=== PATIENT | male | born 1945 | race Caucasian/White ===

== ENCOUNTER → 2017-10-21 | Outpatient (CLI) | payer MEDICARE, BC ==
--- NOTE | 2017-10-21 18:09 | XR ---
EXAMINATION TYPE: XR thoracic spine complete DATE OF EXAM: 10/21/2017 COMPARISON: NONE HISTORY: Back pain TECHNIQUE: 3 views FINDINGS: Vertebra have normal alignment. Posterior elements are intact. There is no paraspinal mass. There is some anterior wedging of T5 T4 vertebra. There is also some wedging of T1 and T2. There is up to 25% loss of height. IMPRESSION: Multiple mild thoracic compression fractures. These fractures are new or increased compar ed to the old chest x-ray of 04/01/2016.
== END | disposition home or self-care (01) ==
LOC: RADXRMAIN 17:44
PROVIDERS: ATTEND Chiropractor
DX: S22.009A Unspecified fracture of unspecified thoracic vertebra, initial encounter for closed fracture (principal)
CPT/HCPCS: 72072

== ENCOUNTER → 2018-01-31 | Outpatient (CLI) | payer BC, MEDICARE, OTHER ==
--- NOTE | 2018-01-31 17:04 | MR ---
EXAMINATION TYPE: MR fermin/janie wo con DATE OF EXAM: 01/31/2018 3:40 PM COMPARISON: NONE HISTORY: Neck pain, Low back pain, foot pain, XRAYS on PACS Multiplanar MultiSpin echo imaging of the cervical spine was performed. C2-C3: No evidence for degenerative disc disease. No disc bulge/herniation or protrusion. No Canal stenosis. Foramina are patent bilaterally. C3-C4: There is mild disc desiccation. Mild posterocentral disc bulge. No evidence for herniation or central stenosis. Foramina are patent bilaterally. C4-C5: There is evidence of mild disc desiccation. Posterocentral disc bulge. No herniation or cord c ontact. No central stenosis. Mild left foraminal encroachment secondary to degenerative change of the cervical apophyseal joints. C5-C6: Moderate disc desiccation noted. Circumferential disc bulge greatest posteriorly. Effacement o f the ventral thecal sac. Constriction of the thecal sac with borderline central stenosis. Moderate l eft foraminal encroachment with mild right foraminal encroachment. C6-C7: Moderate disc desiccation noted. Circumferential disc bulge greatest posteriorly. Effacement o f the ventral thecal sac. Constriction of the thecal sac with borderline central stenosis. Moderate l eft foraminal encroachment with mild right foraminal encroachment. C7-T1: No evidence for degenerative disc disease. No disc bulge/herniation or protrusion. No Canal stenosis. Foramina are patent bilaterally. Cervical segments are intact. There is normal alignment. Cervical spinal cord is of normal signal. Craniovertebral junction relationships are within normal limits. IMPRESSION: 1. Multilevel degenerative disc disease with disc bulging. 2. Borderline central stenosis at C5-6 and C6-7. 3. Neural foraminal encroachment as noted. EXAMINATION TYPE: MR shaffer wo con DATE OF EXAM: 01/31/2018 3:40 PM COMPARISON: NONE HISTORY: Neck pain, Low back pain, foot pain, XRAYS on PACS Multiplanar, MultiSpin echo imaging of the lumbar spine was performed. L1-L2: Normal disc appearance without desiccation. No herniation, protrusion or disc bulging. No ca nal stenosis is present. Foramina are patent bilaterally. L2-L3: Normal disc appearance without desiccation. No herniation, protrusion or disc bulging. No ca nal stenosis is present. Foramina are patent bilaterally. L3-L4: Normal disc appearance without desiccation. No herniation, protrusion or disc bulging. No ca nal stenosis is present. Foramina are patent bilaterally. L4-L5: Mild disc desiccation. Mild posterior disc bulge. Mild effacement ventral thecal sac. No evide nce for disc herniation or central stenosis. Mild facet joint arthropathy without neural foraminal en croachment. L5-S1: Severe disc desiccation. Posterior disc bulge with annular tear. Mild effacement ventral theca l sac. No evidence for central stenosis or sylvie herniation. Mild bilateral foraminal encroachment le ft greater than right. Lumbar segments are intact. No paraspinal masses are identified. Conus medullaris has a normal appe arance. L2-3 and rudimentary disc. IMPRESSION: 1. Degenerative disc disease with disc bulging.
== END | disposition home or self-care (01) ==
LOC: RADMRIMAIN 14:40
PROVIDERS: ATTEND Family Medicine
DX: M51.26 Other intervertebral disc displacement, lumbar region (principal); M51.36 Other intervertebral disc degeneration, lumbar region; M48.02 Spinal stenosis, cervical region; M50.21 Other cervical disc displacement, high cervical region; M50.30 Other cervical disc degeneration, unspecified cervical region
CPT/HCPCS: 72141; 72148

== ENCOUNTER 2019-04-17 10:43 | Observation (INO) | payer OTHER, MEDICARE ==
--- NOTE | 2019-04-17 11:17 | ED ---
General Adult HPI - General Chief complaint: Recheck/Abnormal Lab/Rx Stated complaint: High BP Time Seen by Provider: 04/17/19 11:00 Source: patient, RN notes reviewed Mode of arrival: ambulatory Limitations: no limitations - Related Data Home Medications Medication Instructions Recorded Confirmed Aspirin EC [Ecotrin] 81 mg PO DAILY 04/01/16 04/01/16 Lisinopril [Zestril] 20 mg PO BID 04/01/16 04/01/16 Nitroglycerin Sl Tabs [Nitrostat] 0.4 mg SUBLINGUAL Q5M PRN 04/01/16 04/01/16 Pravastatin Sodium [Pravachol] 80 mg PO HS 04/01/16 04/01/16 Triamterene-Hctz 37.5-25Mg 1 cap PO DAILY 04/01/16 04/01/16 [Dyazide 37.5-25 Capsule] amLODIPine [Norvasc] 10 mg PO DAILY 04/01/16 04/01/16 Previous Rx's Medication Instructions Recorded Ibuprofen [Motrin] 800 mg PO Q6HR PRN #20 tab 04/01/16 Allergies Allergy/AdvReac Type Severity Reaction Status Date / Time No Known Allergies Allergy Verified 04/17/19 10:59 Review of Systems ROS Statement: Those systems with pertinent positive or pertinent negative responses have been documented in the HPI. ROS Other: All systems not noted in ROS Statement are negative. Past Medical History Past Medical History: Hypertension Additional Past Medical History / Comment(s): [place] History of Any Multi-Drug Resistant Organisms: None Reported Past Surgical History: No Surgical Hx Reported Past Psychological History: No Psychological Hx Reported Smoking Status: Former smoker Past Alcohol Use History: Heavy Past Drug Use History: None Reported General Exam Limitations: no limitations Course Vital Signs 04/17/19 10:53 Temperature 98.3 F Pulse Rate 68 Respiratory 18 Rate Blood Pressure 165/90 Disposition Referrals: [facility],Clinic [Primary Care Provider] - 1-2 days
[2019-04-17] MEDS ORDERED: NITROGLYCERIN OINT 1 INCH/GM PACKET TOPICAL STA (11:27)
[2019-04-17] MEDS ORDERED: ASPIRIN 81 MG PO STA (11:27)
--- NOTE | 2019-04-17 11:32 | ED ---
General Adult HPI - General Chief complaint: Recheck/Abnormal Lab/Rx Stated complaint: High BP Time Seen by Provider: 04/17/19 11:00 Source: patient, RN notes reviewed Mode of arrival: ambulatory Limitations: no limitations - History of Present Illness Initial comments: This is a 73-year-old male who presents emergency Department stating that he has high blood pressure and high cholesterol. Patient states he woke up in the middle night with left-sided chest pain and it continued until this moment. Patient states she was mildly short of breath with the chest pain. Patient denies any diaphoretic episodes or any nausea. Patient states it's an achy heaviness feeling in the left side of his chest. Patient denies any radiation of the pain. Patient denies any recent fever chills or cough. Patient denies any abdominal pain patient denies nausea vomiting diarrhea. Patient denies any lightheadedness dizziness or near syncopal episode. Patient denies any recent injury or trauma. Patient denies any leg swelling or calf tenderness. - Related Data Home Medications Medication Instructions Recorded Confirmed Lisinopril [Zestril] 20 mg PO BID 04/01/16 04/17/19 amLODIPine [Norvasc] 10 mg PO DAILY 04/01/16 04/17/19 Allergies Allergy/AdvReac Type Severity Reaction Status Date / Time No Known Allergies Allergy Verified 04/17/19 11:37 Review of Systems ROS Statement: Those systems with pertinent positive or pertinent negative responses have been documented in the HPI. ROS Other: All systems not noted in ROS Statement are negative. Past Medical History Past Medical History: Hypertension Additional Past Medical History / Comment(s): [facility] History of Any Multi-Drug Resistant Organisms: None Reported Past Surgical History: No Surgical Hx Reported Past Psychological History: No Psychological Hx Reported Smoking Status: Former smoker Past Alcohol Use History: Heavy Past Drug Use History: None Reported General Exam - General Exam Comments Initial Comments: GENERAL: Patient is well-developed and well-nourished. Patient is nontoxic and well- hydrated and is in mild distress. ENT: Neck is soft and supple. No significant lymphadenopathy is noted. Oropharynx is clear. Moist mucous membranes. Neck has full range of motion without eliciting any pain. EYES: The sclera were anicteric and conjunctiva were pink and moist. Extraocular movements were intact and pupils were equal round and reactive to light. Eye lids were unremarkable. PULMONARY: Unlabored respirations. Good breath sounds bilaterally. No audible rales rhonchi or wheezing was noted. CARDIOVASCULAR: There is a regular rate and rhythm without any murmurs gallops or rubs. ABDOMEN: Soft and nontender with normal bowel sounds. No palpable organomegaly was noted. There is no palpable pulsatile mass. SKIN: Skin is clear with no lesions or rashes and otherwise unremarkable. NEUROLOGIC: Patient is alert and oriented x3. Cranial nerves II through XII are grossly intact. Motor and sensory are also intact. Normal speech, volume and content. Symmetrical smile. MUSCULOSKELETAL: Normal extremities with adequate strength and full range of motion. No lower extremity swelling or edema. No calf tenderness. LYMPHATICS: No significant lymphadenopathy is noted PSYCHIATRIC: Normal psychiatric evaluation. Limitations: no limitations Course Vital Signs 04/17/19 04/17/19 04/17/19 10:53 11:20 11:30 Temperature 98.3 F Pulse Rate 68 60 Respiratory 18 14 Rate Blood Pressure 165/90 175/89 O2 Sat by Pulse 93 L 95 Oximetry 04/17/19 04/17/19 04/17/19 12:00 12:30 13:00 Temperature Pulse Rate 61 58 L Respiratory 17 12 Rate Blood Pressure 155/84 133/73 127/75 O2 Sat by Pulse 97 96 Oximetry Medical Decision Making - Medical Decision Making EKG shows normal sinus rhythm at 61 bpm ND interval is 162 QRS 144 Q-T intervals 452 QTC is 455. Patient's EKG shows no ST segment elevation or depression or T wave abnormalities are noted. Patient had received aspirin and Nitropaste in the emergency department and that seemed to take the chest pain away completely. Patient's chest x-ray showed no acute abnormality. I spoke with Dr. fofana he agreed to admit the patient admitted the patient wrote admitting orders. I started heparin in the emergency department and continue the heparin Nitropaste and aspirin on the floor. - Lab Data Result diagrams: 04/17/19 11:55 04/17/19 11:55 Lab Results 04/17/19 04/17/19 04/17/19 Range/Units 11:55 11:55 11:55 WBC 4.8 (3.8-10.6) k/uL RBC 5.43 (4.30-5.90) m/uL Hgb 16.9 (13.0-17.5) gm/dL Hct 49.7 (39.0-53.0) % MCV 91.6 (80.0-100.0) fL MCH 31.2 (25.0-35.0) pg MCHC 34.1 (31.0-37.0) g/dL RDW 13.0 (11.5-15.5) % Plt Count 172 (150-450) k/uL Neutrophils % 68 % Lymphocytes % 18 % Monocytes % 9 % Eosinophils % 1 % Basophils % 0 % Neutrophils # 3.3 (1.3-7.7) k/uL Lymphocytes # 0.9 L (1.0-4.8) k/uL Monocytes # 0.4 (0-1.0) k/uL Eosinophils # 0.1 (0-0.7) k/uL Basophils # 0.0 (0-0.2) k/uL PT 10.1 (9.0-12.0) sec INR 0.9 (<1.2) APTT 26.9 (22.0-30.0) sec Sodium 140 (137-145) mmol/L Potassium 4.2 (3.5-5.1) mmol/L Chloride 106 (98-107) mmol/L Carbon Dioxide 23 (22-30) mmol/L Anion Gap 11 mmol/L BUN 17 (9-20) mg/dL Creatinine 1.01 (0.66-1.25) mg/dL Est GFR (CKD-EPI)AfAm 86 (>60 ml/min/1.73 sqM) Est GFR (CKD-EPI)NonAf 74 (>60 ml/min/1.73 sqM) Glucose 107 H (74-99) mg/dL Calcium 10.0 (8.4-10.2) mg/dL Magnesium 2.1 (1.6-2.3) mg/dL Total Bilirubin 1.0 (0.2-1.3) mg/dL AST 34 (17-59) U/L ALT 39 (21-72) U/L Alkaline Phosphatase 81 (38-126) U/L Troponin I (0.000-0.034) ng/mL Total Protein 7.9 (6.3-8.2) g/dL Albumin 4.9 (3.5-5.0) g/dL 04/17/19 Range/Units 11:55 WBC (3.8-10.6) k/uL RBC (4.30-5.90) m/uL Hgb (13.0-17.5) gm/dL Hct (39.0-53.0) % MCV (80.0-100.0) fL MCH (25.0-35.0) pg MCHC (31.0-37.0) g/dL RDW (11.5-15.5) % Plt Count (150-450) k/uL Neutrophils % % Lymphocytes % % Monocytes % % Eosinophils % % Basophils % % Neutrophils # (1.3-7.7) k/uL Lymphocytes # (1.0-4.8) k/uL Monocytes # (0-1.0) k/uL Eosinophils # (0-0.7) k/uL Basophils # (0-0.2) k/uL PT (9.0-12.0) sec INR (<1.2) APTT (22.0-30.0) sec Sodium (137-145) mmol/L Potassium (3.5-5.1) mmol/L Chloride (98-107) mmol/L Carbon Dioxide (22-30) mmol/L Anion Gap mmol/L BUN (9-20) mg/dL Creatinine (0.66-1.25) mg/dL Est GFR (CKD-EPI)AfAm (>60 ml/min/1.73 sqM) Est GFR (CKD-EPI)NonAf (>60 ml/min/1.73 sqM) Glucose (74-99) mg/dL Calcium (8.4-10.2) mg/dL Magnesium (1.6-2.3) mg/dL Total Bilirubin (0.2-1.3) mg/dL AST (17-59) U/L ALT (21-72) U/L Alkaline Phosphatase (38-126) U/L Troponin I <0.012 (0.000-0.034) ng/mL Total Protein (6.3-8.2) g/dL Albumin (3.5-5.0) g/dL Critical Care Time Critical Care Time: Yes Total Critical Care Time: 35 Disposition Clinical Impression: Unstable angina Disposition: ADMITTED IP TO THIS [facility] Condition: Good Referrals: [facility],Clinic [Primary Care Provider] - 1-2 days Time of Disposition: 13:53
--- NOTE | 2019-04-17 12:23 | XR ---
EXAMINATION TYPE: XR chest 2V DATE OF EXAM: 04/17/2019 COMPARISON: Prior chest x-ray 04/01/2016 HISTORY: Chest pain and hypertension TECHNIQUE: Frontal and lateral views of the chest are obtained. FINDINGS: There is no focal air space opacity, pleural effusion, or pneumothorax seen. The cardiac silhouette size is within normal limits. There are overlying cardiac leads. There is likely a spinal curvature present. The aorta is dense. The osseous structures are intact. IMPRESSION: No acute cardiopulmonary process.
[2019-04-17 12:44] LABS: Basophils % (A) 0 %; Eosinophils # (A) 0.1 k/uL (0-0.7); Eosinophils % (A) 1 %; HCT 49.7 % (39.0-53.0); HGB 16.9 gm/dL (13.0-17.5); Lymphocytes # (A) 0.9 k/uL (1.0-4.8); Lymphocytes % (A) 18 %; MCH 31.2 pg (25.0-35.0); MCHC 34.1 g/dL (31.0-37.0); MCV 91.6 fL (80.0-100.0); Monocytes # (A) 0.4 k/uL (0-1.0); Monocytes % (A) 9 %; Neutrophils # (A) 3.3 k/uL (1.3-7.7); Neutrophils % (A) 68 %; Platelet Count 172 k/uL (150-450); RBC 5.43 m/uL (4.30-5.90); WBC 4.8 k/uL (3.8-10.6)
[2019-04-17 12:55] LABS: Albumin 4.9 g/dL (3.5-5.0); Magnesium 2.1 mg/dL (1.6-2.3); Potassium 4.2 mmol/L (3.5-5.1); Total Protein 7.9 g/dL (6.3-8.2)
[2019-04-17 13:09] LABS: INR 0.9 (<1.2); Partial Thromboplastin Time 26.9 sec (22.0-30.0); Prothrombin Time 10.1 sec (9.0-12.0)
[2019-04-17] MEDS ORDERED: HEPARIN SODIUM,PORCINE 5,000 UNIT/ML 1 ML VIAL IV ONE (13:49)
[2019-04-17] MEDS ORDERED: HEPARIN SOD,PORK IN 0.45% NACL 25,000 UNIT in 0.45% NACL 1 250ML.BAG IV SCH (14:00)
[2019-04-17] MEDS ORDERED: PANTOPRAZOLE 40 MG TABLET PO SCH (14:30)
[2019-04-17] MEDS ORDERED: NITROGLYCERIN SL TABS 0.4 MG TAB SUBLINGUAL PRN (15:06)
[2019-04-17 16:01] VITALS: RESP 18
[2019-04-17 16:18] VITALS: BMI 30.7
[2019-04-17] MEDS: ACETAMINOPHEN TAB 325 MG TAB PO PRN ×2 (16:37→19:44)
--- NOTE | 2019-04-17 18:58 | P.HPIM ---
History of Present Illness This is a pleasant 73 years old male with past medical history of Hypertension, who presents because of chest pain which was started yesterday , on the left upper chest , non radiating , about 10/10 when he came in to the hospital , now it is down to 4/10, pt feels it like burning, associated with nausea but no vomiting , he denies abdominal pain , no change in urine or bowel habits, no fever , no coughing he denies smoking , no illicit drugs but he drinks nina about 3-4 times per week On admission Vitas looks stable, guarded blood pressure 133/73. Labs reviewed showing unremarkable CBC, BMP and liver enzymes. First troponin is less than 0.012. No acute Pulmonary process as per Radiologist. EKG: Showing normal sinu s rhythm at [address]-T wave, right mental branch block in the emergency room pt was started on heparin drip and aspirin, however later on the iv line went bad and needed to be replaced but pt refused as per staff, risks including but not limited to risk of , heart failure or loss of function are explained for him but he refused , cardiology team was paged and as alternative pt was started on heparin 5000 U sc q 8 hours. discussed with pharmacy discussed with staff to place mid-line Review of Systems CONSTITUTIONAL: No fever, no malaise, no fatigue. HEENT: No recent visual problems or hearing problems. Denied any sore throat. CARDIOVASCULAR: No orthopnea, PND, no palpitations, no syncope. PULMONARY: No shortness of breath, no cough, no hemoptysis. GASTROINTESTINAL: No diarrhea, no nausea, no vomiting, no abdominal pain. Normoactive bowel sounds. NEUROLOGICAL: No headaches, no weakness, no numbness. HEMATOLOGICAL: Denies any bleeding or petechiae. GENITOURINARY: Denies any burning micturition, frequency, or urgency. MUSCULOSKELETAL/RHEUMATOLOGICAL: Denies any joint pain, swelling, or any muscle pain. ENDOCRINE: Denies any polyuria or polydipsia. Past Medical History Past Medical History: Hypertension Additional Past Medical History / Comment(s): [place] History of Any Multi-Drug Resistant Organisms: None Reported Past Surgical History: No Surgical Hx Reported Past Psychological History: No Psychological Hx Reported Smoking Status: Former smoker Past Alcohol Use History: Heavy Past Drug Use History: None Reported Medications and Allergies Home Medications Medication Instructions Recorded Confirmed Type Lisinopril [Zestril] 20 mg PO BID 04/01/16 04/17/19 History amLODIPine [Norvasc] 10 mg PO DAILY 04/01/16 04/17/19 History Allergies Allergy/AdvReac Type Severity Reaction Status Date / Time No Known Allergies Allergy Verified 04/17/19 11:37 Physical Exam Vitals: Vital Signs Temp Pulse Resp BP Pulse Ox 04/17/19 13:00 58 L 12 127/75 96 04/17/19 12:30 61 17 133/73 97 04/17/19 12:00 155/84 04/17/19 11:30 60 14 175/89 95 04/17/19 11:20 93 L 04/17/19 10:53 98.3 F 68 18 165/90 Intake and Output 04/16/19 04/17/19 04/17/19 22:59 06:59 14:59 Other: Weight 88.995 kg GENERAL: The patient is alert and oriented x3, not in any acute distress. Well developed, well nourished. HEENT: Pupils are round and equally reacting to light. EOMI. No scleral icterus. No conjunctival pallor. Normocephalic, atraumatic. No pharyngeal erythema. No thyromegaly. CARDIOVASCULAR: S1 and S2 present. No murmurs, rubs, or gallops. PULMONARY: Chest is clear to auscultation, no wheezing or crackles. ABDOMEN: Soft, nontender, nondistended, normoactive bowel sounds. No palpable organomegaly. MUSCULOSKELETAL: No joint swelling or deformity. EXTREMITIES: No cyanosis, clubbing, or pedal edema. NEUROLOGICAL: Gross neurological examination did not reveal any focal deficits. SKIN: No rashes. Results CBC & Chem 7: 04/17/19 11:55 04/17/19 11:55 Labs: Abnormal Lab Results - Last 24 Hours (Table) 04/17/19 04/17/19 Range/Units 11:55 11:55 Lymphocytes # 0.9 L (1.0-4.8) k/uL Glucose 107 H (74-99) mg/dL Assessment and Plan Assessment: chest pain , rule out unstable angina hypertension alcohol abuse Plan: this is a pleasant 73 yo M who presents with unstable angina, pt refusing iv line , start sc heparin , other anticoagulants are longer acting and might interfere if he will need procedure , cardiology consult is placed, continue with aspirin. Labs and medication were reviewed.. Continue same treatment. Continue with symptomatic treatment. Resume home medication. Monitor lytes and vitals. DVT and GI prophylaxis. Further recommendations of the clinical course of the patient DVT prophylaxis: Subcutaneous heparin, pt refusing placing iv line GI Prophylaxis: Protonix Prognosis is guarded
[2019-04-17] MEDS: NITROGLYCERIN OINT 1 INCH/GM PACKET TOPICAL SCH ×2 (18:59→19:46)
[2019-04-17] MEDS: HEPARIN SODIUM,PORCINE 5,000 UNIT/ML 1 ML VIAL SQ SCH ×2 (19:32→19:46)
[2019-04-17] MEDS ORDERED: LISINOPRIL 20 MG TAB PO SCH (21:00)
[2019-04-18] MEDS ORDERED: IBUPROFEN 600 MG TAB PO STA (00:21)
[2019-04-18 00:22] LABS: Cholesterol 254 mg/dL (<200); HDL Cholesterol 69 mg/dL (40-60); LDL Cholesterol,Calculated 166 mg/dL (0-99); Triglycerides 95 mg/dL (<150)
[2019-04-18] MEDS ORDERED: ASPIRIN 325 MG TAB PO SCH (09:00)
[2019-04-18] MEDS ORDERED: ATORVASTATIN 40 MG TAB PO SCH (09:00)
[2019-04-18] MEDS ORDERED: amLODIPine 10 MG TAB PO SCH (09:00)
--- NOTE | 2019-04-18 09:55 | P.CRDCN ---
History of Present Illness History of present illness: This is a pleasant 73-year-old male past medical history significant for hypertension and former nicotine dependence. 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 We've been asked to see him in consultation secondary to chest discomfort. He states he has been back and forth to the [facility] over the previous couple weeks secondary to elevated blood pressures. Has been checking his blood pressures at home and his blood pressure yesterday morning when he woke up was over 200 systolic. He states he has been out of his prescribed medications for reasons out of his control for the previous week. He also noticed a tight sensation in the left precordial region he describes as achy. There is no radiation to the a rm, back, neck or jaw. He denies any associated shortness of breath, dizziness, nausea, vomiting, palpitations or diaphoresis. There is no specific aggravating or alleviating factors. Blood pressure on arrival to the emergency department was 165/90 175/89. Upon arrival to the emergency department he was given nitroglycerin and prescribed lisinopril which brought his blood pressure down and subsided his chest discomfort. Blood pressure this morning 132/81 with a heart rate of 50. EKG reveals sinus mechanism, right bundle branch block and left axis deviation. No acute ST or T wave abnormalities noted. Chest x-ray is negative for an acute cardiopulmonary process. Laboratory data reviewed, cardiac enzymes negative 3, LDL 166 and HDL 69. Current cardiac medications include amlodipine 10 mg daily and lisinopril 20 mg twice a day. At the time of my exam: CONSTITUTIONAL: Denies fever. Denies chills. EYES: Denies blurred vision. Denies vision changes. Denies eye pain. EARS, NOSE, MOUTH & THROAT: Denies headache. Denies sore throat. Denies ear pain. CARDIOVASCULAR: Denies chest pain. Denies shortness of breath. Denies orthopnea. Denies PND. Denies palpitations. RESPIRATORY: Denies cough. GASTROINTESTINAL: Denies abdominal pain. Denies diarrhea. Denies constipation. Denies nausea. Denies vomiting. MUSCULOSKELETAL: Denies myalgias. INTEGUMENTARY: Denies pruitis. Denies rash. NEUROLOGIC: Denies numbness. Denies tingling. Denies weakness. PSYCHIATRIC: Denies anxiety. Denies depression. ENDOCRINE: Denies fatigue. Denies weight change. Denies polydipsia. Denies polyurina. GENITOURINARY: Denies burning, hematuria or urgency with micturation. HEMATOLOGIC: Denies history of anemia. Denies bleeding. GENERAL: This is a 73-year-old male in no apparent distress at the ti me of my examination. HEENT: Head is atraumatic, normocephalic. Pupils are equal, round. Sclerae ani cteric. Conjunctivae are clear. Mucous membranes of the mouth are moist. Neck is supple. There is no jugular venous distention. No carotid bruit is heard. LUNGS: Faint expiratory wheeze noted, no rhonchi or rales. No chest wall tenderness is noted on palpation or with deep breathing. HEART: Regular rate and rhythm without murmurs, rubs or gallops. S1 and S2 heard. ABDOMEN: Soft, nontender. Bowel sounds are heard. No organomegaly noted. EXTREMITIES: No evidence of peripheral edema and no calf tenderness noted. VASCULAR: Radial and dorsalis pedis pulses palpated, no evidence of clubbing. NEUROLOGIC: Patient is awake, alert and oriented x3. ASSESSMENT Chest pain, atypical for angina. An acute coronary event has been ruled out. Hypertension, uncontrolled Dyslipidemia PLAN Resume amlodipine and lisinopril as previously ordered. Initiate on moderate dose statin, atorvastatin 40 mg daily. Obtain 2-D echocardiogram and Doppler study to assess cardiac structure and function. Perform cardiolyte stress test to assess for reversible cardiac ischemia. Stress test is normal he is stable from a cardiac perspective. Thank you kindly for this consultation. Nurse Practitioner note has been reviewed, I agree with a documented findings and plan of care. Patient was seen and examined. Past Medical History Past Medical History: Hypertension Additional Past Medical History / Comment(s): [place] History of Any Multi-Drug Resistant Organisms: None Reported Past Surgical History: No Surgical Hx Reported Past Psychological History: No Psychological Hx Reported Smoking Status: Former smoker Past Alcohol Use History: Heavy Past Drug Use History: None Reported Medications and Allergies Home Medications Medication Instructions Recorded Confirmed Type Lisinopril [Zestril] 20 mg PO BID 04/01/16 04/17/19 History amLODIPine [Norvasc] 10 mg PO DAILY 04/01/16 04/17/19 History Allergies Allergy/AdvReac Type Severity Reaction Status Date / Time No Known Allergies Allergy Verified 04/17/19 11:37 Physical Exam Vitals: Vital Signs Temp Pulse Pulse Resp BP BP Pulse Ox 04/18/19 07:00 97.6 F 50 L 18 132/81 98 04/18/19 04:00 97.9 F 49 L 18 119/74 97 04/18/19 00:00 97.8 F 51 L 18 119/69 97 04/17/19 20:00 98.2 F 53 L 18 122/68 96 04/17/19 16:00 59 L 18 04/17/19 15:58 97.6 F 59 L 18 162/77 97 04/17/19 15:00 62 16 127/81 97 04/17/19 14:30 59 L 13 128/87 96 04/17/19 14:00 60 12 115/75 96 04/17/19 13:30 60 11 L 148/87 97 04/17/19 13:00 58 L 12 127/75 96 04/17/19 12:30 61 17 133/73 97 04/17/19 12:00 155/84 04/17/19 11:30 60 14 175/89 95 04/17/19 11:20 93 L 04/17/19 10:53 98.3 F 68 18 165/90 Intake and Output 04/17/19 04/18/19 04/18/19 22:59 06:59 14:59 Intake Total 240 Balance 240 Intake: Oral 240 Other: Voiding Method Toilet Toilet # Voids 1 Results 04/17/19 11:55 04/17/19 11:55 Cardiac Enzymes 04/17/19 04/17/19 04/17/19 Range/Units 11:55 11:55 18:10 AST 34 (17-59) U/L Troponin I <0.012 <0.012 (0.000-0.034) ng/mL 04/18/19 Range/Units 00:35 AST (17-59) U/L Troponin I <0.012 (0.000-0.034) ng/mL Coagulation 04/17/19 Range/Units 11:55 PT 10.1 (9.0-12.0) sec APTT 26.9 (22.0-30.0) sec Lipids 04/17/19 Range/Units 11:55 Triglycerides 95 (<150) mg/dL Cholesterol 254 H (<200) mg/dL HDL Cholesterol 69 H (40-60) mg/dL CBC 04/17/19 Range/Units 11:55 WBC 4.8 (3.8-10.6) k/uL RBC 5.43 (4.30-5.90) m/uL Hgb 16.9 (13.0-17.5) gm/dL Hct 49.7 (39.0-53.0) % Plt Count 172 (150-450) k/uL Comprehensive Metabolic Panel 04/17/19 Range/Units 11:55 Sodium 140 (137-145) mmol/L Potassium 4.2 (3.5-5.1) mmol/L Chloride 106 (98-107) mmol/L Carbon Dioxide 23 (22-30) mmol/L BUN 17 (9-20) mg/dL Creatinine 1.01 (0.66-1.25) mg/dL Glucose 107 H (74-99) mg/dL Calcium 10.0 (8.4-10.2) mg/dL AST 34 (17-59) U/L ALT 39 (21-72) U/L Alkaline Phosphatase 81 (38-126) U/L Total Protein 7.9 (6.3-8.2) g/dL Albumin 4.9 (3.5-5.0) g/dL Current Medications Generic Name Dose Route Start Last Admin Trade Name Freq PRN Reason Stop Dose Admin Acetaminophen 650 mg 04/17/19 16:21 04/17/19 19:44 Tylenol Tab PO 650 mg Q6HR PRN Administration Fever and/ or Mild Pain Amlodipine Besylate 10 mg 04/18/19 09:00 Norvasc PO DAILY [facility] Aspirin 325 mg 04/18/19 09:00 Aspirin PO DAILY [facility] Heparin Sodium (Porcine) 5,000 unit 04/17/19 20:00 04/17/19 19:46 Heparin SQ Not Given Q8H [facility] Lisinopril 20 mg 04/17/19 21:00 04/17/19 19:44 Zestril PO 20 mg BID MONICA Administration Nitroglycerin 1 inch 04/17/19 18:00 04/17/19 19:46 Nitro-Bid Oint TOPICAL Not Given Q6HR [facility] Nitroglycerin 0.4 mg 04/17/19 15:06 Nitrostat SUBLINGUAL Q5M PRN Chest Pain Pantoprazole Sodium 40 mg 04/17/19 14:30 04/17/19 16:38 Protonix PO 40 mg [id number]-[id number] MONICA Administration Intake and Output 04/17/19 04/18/19 04/18/19 22:59 06:59 14:59 Intake Total 240 Balance 240 Intake: Oral 240 Other: Voiding Method Toilet Toilet # Voids 1 04/17/19 11:55 04/17/19 11:55
[2019-04-18 11:20] VITALS: BP 127/80; PULSE 55; TEMP 98.1
--- NOTE | 2019-04-18 11:20 | ECHOF ---
Referral Reason:cp MEASUREMENTS -------- HEIGHT: 170.2 cm WEIGHT: 88.0 kg BP: RVIDd: 2.5 cm (< 3.3) IVSd: 1.4 cm (0.6 - 1.1) LVIDd: 3.6 cm (3.9 - 5.3) LVPWd: 1.4 cm (0.6 - 1.1) IVSs: 2.0 cm LVIDs: 2.1 cm LVPWs: 2.1 cm LAESV Index (A-L): 13.96 ml/m Ao Diam: 2.3 cm (2.0 - 3.7) AV Cusp: 1.8 cm (1.5 - 2.6) LA Diam: 3.4 cm (2.7 - 3.8) MV EXCURSION: 15.965 mm (> 18.000) MV EF SLOPE: 77 mm/s (70 - 150) EPSS: 0.5 cm MV E Jose: 0.89 m/s MV DecT: 261 ms MV A Jose: 0.86 m/s MV E/A Ratio: 1.04 RAP: 5.00 mmHg RVSP: 10.99 mmHg FINDINGS -------- Sinus rhythm. This was a technically good study. The left ventricular size is normal. There is moderate concentric left ventricular hypertrophy. O verall left ventricular systolic function is normal with, an EF between 55 - 60 %. The diastolic fi lling pattern is normal for the age of the patient 10.03. The right ventricle is normal in size. The left atrial size is normal. Normal LA size by volume 22+/-6 ml/m2. The right atrial size is normal. Interatrial and interventricular septum intact. The aortic valve is trileaflet and appears structurally normal. There is trace mitral regurgitation. Trace tricuspid regurgitation present. The right ventricular systolic pressure, as measured by Dopp ler, is 10.99mmHg. There is no pulmonic regurgitation present. The aortic root size is normal. Normal inferior vena cava with normal inspiratory collapse consistent with estimated right atrial pre ssure of 5 mmHg. There is no pericardial effusion. CONCLUSIONS -------- 1. Sinus rhythm. 2. This was a technically good study. 3. The left ventricular size is normal. 4. There is moderate concentric left ventricular hypertrophy. 5. Overall left ventricular systolic function is normal with, an EF between 55 - 60 %. 6. The diastolic filling pattern is normal for the age of the patient 10.03 7. The right ventricle is normal in size. 8. The left atrial size is normal. 9. Normal LA size by volume 22+/-6 ml/m2. 10. The right atrial size is normal. 11. Interatrial and interventricular septum intact. 12. The aortic valve is trileaflet and appears structurally normal. 13. There is trace mitral regurgitation. 14. Trace tricuspid regurgitation present. 15. The right ventricular systolic pressure, as measured by Doppler, is 10.99mmHg. 16. There is no pulmonic regurgitation present. 17. The aortic root size is normal. 18. Normal inferior vena cava with normal inspiratory collapse consistent with estimated right atrial pressure of 5 mmHg. 19. There is no pericardial effusion. SECONDS GRADER: Adelaida Blevins RDCS
--- NOTE | 2019-04-18 13:20 | ECHOS ---
STRESS ECHOCARDIOGRAM INDICATIONS: Chest pain. MEDICATIONS: BASELINE HEART RATE: 58 BASELINE BLOOD PRESSURE: 132/65 MAXIMUM HEART RATE: 140 MAXIMUM BLOOD PRESSURE: 196/69 85% MPHR: 126 100% MPHR: 148 METS: 8.4 MAXIMUM STAGE REACHED: III TOTAL EXERCISE TIME: 7 minutes CLINICAL INFORMATION: Patient was exercised for a total period of 7 minute. The peak heart rate of 140 was achieved. Maximum blood pressure of 196/69 mmHg was noted. Resting EKG shows normal sinus rhythm with QRS morphology suggestive of right bundle branch block pattern was noted. No ST-segment depression suggestive of ischemia was noted. The baseline echocardiographic images reveal normal left ventricular chamber size with normal left ventricular systolic function. In the immediate postexercise period, normal increase in the wall thickness and contractility is noted. FINAL IMPRESSION: This stress echocardiographic study is negative for stress-induced ischemia. EKG portion of the stress test is not suggestive of ischemia. Patient's exercise tolerance is average. MMODL / IJN: [id number] /
--- NOTE | 2019-04-18 22:16 | P.DS ---
Providers Date of admission: 04/17/19 15:06 Attending physician: Fredrick Lemus MD Consults: 04/17/19 15:06 Consult Physician Urgent Consulting Provider: [facility] Consult Reason/Comments: Unstable angina Do you want consulting provider notified?: Yes Primary care physician: [facility] Course: This is a pleasant 73 years old male with past medical history of Hypertension, who presents because of severe chest pain of 1-2 days of duration. Patient has been evaluated by coater operator. Serial troponins were unremarkable as. EKG no significant ST-T changes. Glass Cleaning Machine Tender recommended a stress test which shows: Patient's symptoms completely resolved and his currently chest pain-free. He denies any other symptoms. No dyspnea. No abdominal pain. No nausea vomiting. No change in urine or bowel habits. He tolerated diet well. Mobility with no difficulty. Patient was cleared by cardiology team for discharge. Problems and management plan were discussed with the patient and he verbalized understanding and acceptance Patient was found stable and can be discharged home however he needs follow-up as an outpatient. pt was instructed to f/u with his pcp in one week , and his coater operator in 2 wks and he agrees. pt wants scripts for lipitor and he wants to try it , although he could not tolerated pravastatin before . Gen: patient is a AAOx3, no distress CVS: S1-S2, RRR, no murmur Lungs: B/L CTA, no wheezing Abdomen: soft, no distention, no tenderness, positive bowel sounds Extremity: no leg edema or induration Time spent more than 35 minutes Patient Condition at Discharge: Good Plan - Discharge Summary Discharge Rx Participant: No New Discharge Prescriptions: New Nitroglycerin Sl Tabs [Nitrostat] 0.4 mg SUBLINGUAL Q5M PRN #20 tab PRN Reason: Chest Pain Atorvastatin [Lipitor] 40 mg PO DAILY #30 tablet Continue amLODIPine [Norvasc] 10 mg PO DAILY Lisinopril [Zestril] 20 mg PO BID Discharge Medication List Lisinopril [Zestril] 20 mg PO BID 04/01/16 [History] amLODIPine [Norvasc] 10 mg PO DAILY 04/01/16 [History] Atorvastatin [Lipitor] 40 mg PO DAILY #30 tablet 04/18/19 [Rx] Nitroglycerin Sl Tabs [Nitrostat] 0.4 mg SUBLINGUAL Q5M PRN #20 tab 04/18/19 [Rx] Follow up Appointment(s)/Referral(s): Jeanette August MD [STAFF PHYSICIAN] - 2 Weeks (coater operator ) [facility] [Primary Care Provider] - 1-2 days Activity/Diet/Wound Care/Special Instructions: cardiac diet activity is limited till you see your doctor Discharge Disposition: HOME SELF-CARE
== END 2019-04-18 13:55 | disposition home or self-care (01) ==
LOC: EC 10:43 → 1SOBS 15:06
PROVIDERS: ADMIT Internal Medicine; ATTEND Internal Medicine
DX: R07.89 Other chest pain (principal); E78.00 Pure hypercholesterolemia, unspecified; E78.5 Hyperlipidemia, unspecified; I10 Essential (primary) hypertension; F10.10 Alcohol abuse, uncomplicated; I45.10 Unspecified right bundle-branch block; Z79.899 Other long term (current) drug therapy; Z87.891 Personal history of nicotine dependence; Z53.20 Procedure and treatment not carried out because of patient's decision for unspecified reasons
CPT/HCPCS: 96374; 99291; 36415; 93005; 93306; 93351; 80061; 80053; 83735; 84484 ×2; 85025; 85610; 85730; 71046; G0378 ×2; J1644 ×2

== ENCOUNTER 2021-01-06 12:14 | Observation (INO) | payer OTHER, MEDICARE ==
[2021-01-06 13:21] LABS: Basophils % (A) 1 %; Eosinophils # (A) 0.1 k/uL (0-0.7); Eosinophils % (A) 3 %; HCT 46.7 % (39.0-53.0); Lymphocytes % (A) 21 %; MCHC 34.4 g/dL (31.0-37.0); MCV 90.2 fL (80.0-100.0); Mean Platelet Volume 7.1; Monocytes # (A) 0.3 k/uL (0-1.0); Monocytes % (A) 7 %; Neutrophils % (A) 66 %; Platelet Count 175 k/uL (150-450); RBC 5.17 m/uL (4.30-5.90); RDW 13.1 % (11.5-15.5); WBC 4.5 k/uL (3.8-10.6)
[2021-01-06 13:34] LABS: ALT 28 U/L (4-49); AST 34 U/L (17-59); African American GFR (CKD) >90 (>60 ml/min/1.73 sqM); Albumin 4.3 g/dL (3.5-5.0); Alkaline Phosphatase 68 U/L (38-126); Anion Gap 7 mmol/L; Blood Urea Nitrogen 24 mg/dL (9-20); Calcium 9.2 mg/dL (8.4-10.2); Carbon Dioxide 21 mmol/L (22-30); Chloride 109 mmol/L (98-107); Glucose 105 mg/dL (74-99); INR 0.9 (<1.2); Non-African American GFR(CKD) 85 (>60 ml/min/1.73 sqM); Partial Thromboplastin Time 25.4 sec (22.0-30.0); Potassium 4.3 mmol/L (3.5-5.1); Sodium 137 mmol/L (137-145); Total Bilirubin 0.6 mg/dL (0.2-1.3); Total Protein 7.3 g/dL (6.3-8.2)
--- NOTE | 2021-01-06 15:48 | ED ---
Chest Pain HPI - General Chief Complaint: Chest Pain Stated Complaint: Chest pain Time Seen by Provider: 01/06/21 15:20 Source: patient Mode of arrival: ambulatory Limitations: no limitations - History of Present Illness Initial Comments: 75-year-old male with history of hypertension presents to the emergency department with a chief complaint of chest pain. States the chest pain has been well for approximately 6 weeks and is located on the left side of the chest. States the pain is nonradiating and is reproducible with palpation. Patient also reports exertional dyspnea over the last several days. He also reports nausea over the last several days but no vomiting or diarrhea. Denies any lightheadedness, dizziness or headache. States his most recent stress test was at least 4 years ago. He takes lisinopril and amlodipine for the hypertension. Denies family history of early cardiac related . Patient took 325 mg of aspirin before arrival. - Related Data Home Medications Medication Instructions Recorded Confirmed amLODIPine [Norvasc] 10 mg PO DAILY 04/01/16 01/06/21 lisinopriL [Zestril] 20 mg PO DAILY 04/01/16 01/06/21 Aspirin EC [Ecotrin Low Dose] 81 mg PO DAILY 01/06/21 01/06/21 Previous Rx's Medication Instructions Recorded Nitroglycerin Sl Tabs [Nitrostat] 0.4 mg SUBLINGUAL Q5M PRN #20 tab 04/18/19 Allergies Allergy/AdvReac Type Severity Reaction Status Date / Time No Known Allergies Allergy Verified 01/06/21 15:52 Review of Systems ROS Statement: Those systems with pertinent positive or pertinent negative responses have been documented in the HPI. ROS Other: All systems not noted in ROS Statement are negative. Past Medical History Past Medical History: Hypertension Additional Past Medical History / Comment(s): [facility] History of Any Multi-Drug Resistant Organisms: None Reported Past Surgical History: No Surgical Hx Reported Past Psychological History: No Psychological Hx Reported Smoking Status: Never smoker Past Alcohol Use History: Heavy Past Drug Use History: None Reported General Exam Limitations: no limitations General appearance: alert, in no apparent distress Head exam: Present: atraumatic, normocephalic, normal inspection Eye exam: Present: normal appearance, PERRL, EOMI Pupils: Present: normal accommodation ENT exam: Present: normal exam, normal oropharynx, mucous membranes moist Neck exam: Present: normal inspection, full ROM. Absent: tenderness Respiratory exam: Present: normal lung sounds bilaterally, chest wall tenderness (Tenderness near the left upper chest). Absent: respiratory distress, wheezes, rales, rhonchi, stridor, accessory muscle use Cardiovascular Exam: Present: regular rate, normal rhythm, normal heart sounds GI/Abdominal exam: Present: soft. Absent: distended, tenderness, guarding, rebound Extremities exam: Present: normal inspection, full ROM, normal capillary refill. Absent: tenderness, pedal edema, joint swelling Back exam: Present: normal inspection, full ROM. Absent: tenderness Neurological exam: Present: alert, oriented X3 Psychiatric exam: Present: normal affect, normal mood Skin exam: Present: warm, dry, intact, normal color Course Vital Signs 01/06/21 12:52 Temperature 98.1 F Pulse Rate 57 L Respiratory 18 Rate Blood Pressure 161/85 O2 Sat by Pulse 98 Oximetry Chest Pain MDM - MDM 75-year-old male with history of hypertension presents emergency department with chief complaint of chest pain. Physical examination is unremarkable. Patient appears to have reproducible left-sided chest pain without radiation. Exertional dyspnea. Chest x-ray shows no acute findings. CBC CMP unremarkable. Coags within normal limits. Initial troponin is negative. D-dimer negative. Patient does not seen a e commerce director in quite some time and his most recent stress test was at least 4 years ago. Patient agrees to stay for cardiac observation. I spoke with who will admit. Case discussed with Cardiology consult Disposition Clinical Impression: Chest pain Disposition: ADMITTED IP TO THIS HOSP Condition: Stable Is patient prescribed a controlled substance at d/c from ED?: No Referrals: [facility]Clinic [Primary Care Provider] - 1-2 days Time of Disposition: 17:28
--- NOTE | 2021-01-06 16:19 | XR ---
EXAMINATION TYPE: XR chest 2V DATE OF EXAM: 01/06/2021 COMPARISON: Chest x-ray April 17, 2019 HISTORY: Chest pain. TECHNIQUE: Frontal and lateral views of the chest are obtained. FINDINGS: There is some chronic parenchymal change without suspicious focal air space opacity, pleur al effusion, or pneumothorax seen. The cardiac silhouette size is stable and within normal limits. M ultilevel spurring in the thoracic spine.. IMPRESSION: Chronic changes without acute pulmonary process.
[2021-01-06] MEDS ORDERED: NITROGLYCERIN SL TABS 0.4 MG TAB SUBLINGUAL PRN (17:22)
[2021-01-06] MEDS ORDERED: amLODIPine 10 MG TAB PO SCH (23:00)
--- NOTE | 2021-01-06 23:02 | P.HPIM ---
History of Present Illness H&P Date: 01/06/21 Chief Complaint: Chest pain Patient is a 75-year-old male with a known history of hypertension, clear history of smoking presents to ER with complaints of chest pain. Patient states that he has been having arm left chest pain for the past 6 weeks. Last night he felt stressed out and could not sleep well. He did check his blood pressure which was found to be very high and was not coming down patient did take extra dose of his lisinopril. Today morning while he was in the kitchen he started having chest pain and numbness on both side of his neck. Associate with shor tness of breath and nausea. No episodes of vomiting. Patient felt lightheaded and leaned onto the floor. Denied any loss of consciousness. Patient states that he has been having exertional dyspnea for the last few weeks. Patient was admitted to hospital in April 2019. He did have stress echocard iogram of the time showed no inducible ischemia and was seen by cardiology. Echocardiogram showed ejection fraction 55 to 60% and no significant valvular abnormalities noted. On admission blood pressure was 161/85 and pulse 57 respiration 18 and pulse ox 98% on room air Laboratory data showed WBC 4.5, hemoglobin 16.0 and D-dimer 0.34 BUN 24 and creatinine 0.89 and a troponin x1 - Coronavirus PCR not detected Review of Systems Constitutional: Patient denies any fever or chills . No generalized weakness or weight loss. Abdomen: Patient denied nausea vomiting and diarrhea and abdominal pain. Cardiovascular: Patient does complain of chest pain and numbness on both sides of neck. No palpitations no leg swelling. No shortness of breath currently. Respiratory: patient denied any cough or sputum production. No shortness of breath Neurologic: Patient denied any numbness or tingling headache. Musculoskeletal: Patient denies any complaints of joint swelling or deformity. Skin: Negative Psychiatric: Negative Endocrine: No heat or cold intolerance. No recent weight gain. Genitourinary: No dysuria or hematuria. All other 14 point ROS negative except the above Past Medical History Past Medical History: Hypertension Additional Past Medical History / Comment(s): [email or web address] History of Any Multi-Drug Resistant Organisms: None Reported Past Surgical History: No Surgical Hx Reported Past Anesthesia/Blood Transfusion Reactions: No Reported Reaction Past Psychological History: No Psychological Hx Reported Smoking Status: Former smoker Past Alcohol Use History: Heavy Past Drug Use History: None Reported Medications and Allergies Home Medications Medication Instructions Recorded Confirmed Type amLODIPine [Norvasc] 10 mg PO DAILY 04/01/16 01/06/21 History lisinopriL [Zestril] 20 mg PO DAILY 04/01/16 01/06/21 History Nitroglycerin Sl Tabs [Nitrostat] 0.4 mg SUBLINGUAL Q5M PRN #20 tab 04/18/19 01/06/21 Rx Aspirin EC [Ecotrin Low Dose] 81 mg PO DAILY 01/06/21 01/06/21 History Allergies Allergy/AdvReac Type Severity Reaction Status Date / Time No Known Allergies Allergy Verified 01/06/21 15:52 Physical Exam Vitals: Vital Signs Temp Pulse Pulse Resp BP BP Pulse Ox 01/06/21 20:00 97.6 F 96 55 L 18 161/84 154/79 97 01/06/21 19:51 97.6 F 55 L 18 154/79 97 01/06/21 17:30 98.1 F 61 20 158/82 98 01/06/21 15:30 98.1 F 58 L 18 164/78 98 01/06/21 12:52 98.1 F 57 L 18 161/85 98 Intake and Output 01/06/21 01/06/21 01/06/21 06:59 14:59 22:59 Other: # Voids 1 Weight 86.183 kg 86.183 kg PHYSICAL EXAMINATION: Patient is lying in the bed comfortably, no acute distress, awake alert and oriented.. HEENT: Normocephalic. Neck is supple. Pupils reactive. Nostrils clear. Oral cavity is moist. Ears reveal no drainage. Neck reveals no JVD, carotid bruits, or thyromegaly. CHEST EXAMINATION: Trachea is central. Symmetrical expansion. Lung dahl clear to auscultation and percussion. CARDIAC: Normal S1, S2 with no gallops. No murmurs ABDOMEN: Soft. Bowel sounds normal. No organomegaly. No abdominal bruits. Extremities: reveal no edema. No clubbing or cyanosis Neurologically awake, alert, oriented x3 with well-coordinated movements. No focal deficits noted Skin: No rash or skin lesions. Psychiatric: Coperative. Nonsuicidal, Anxious. Musculoskeletal: No joint swelling or deformity. Normal range of motion. Results CBC & Chem 7: 01/06/21 13:04 01/06/21 13:04 Labs: Abnormal Lab Results - Last 24 Hours (Table) 01/06/21 Range/Units 13:04 Chloride 109 H (98-107) mmol/L Carbon Dioxide 21 L (22-30) mmol/L BUN 24 H (9-20) mg/dL Glucose 105 H (74-99) mg/dL Thrombosis Risk Factor Assmnt - DVT/VTE Prophylaxis DVT/VTE Prophylaxis: Pharmacologic Prophylaxis ordered - Choose All That Apply Any of the Below Risk Factors Present?: No Other Risk Factors: No Thrombosis Risk Factor Assessment Level: Very Low Risk Assessment and Plan Assessment: Chest pain and exertional dyspnea. Rule out ACS Uncontrolled hypertension. Near syncope Previous history of smoking DVT prophylaxis with heparin subcu Plan: Patient will be continued on telemetry monitoring. Serial EKG and troponin x3. 2D echocardiogram will be ordered and cardiology was consulted for evaluation. Patient had negative stress test in April 2019. Continue with home blood pressure medications and titrate as needed. Further recommendations based on the clinical course. Time with Patient: Greater than 30
--- NOTE | 2021-01-07 00:07 | US ---
EXAMINATION TYPE: US carotid duplex BILAT DATE OF EXAM: 01/06/2021 COMPARISON: CT CLINICAL HISTORY: Near Syncope. Near syncope. Hx hypertension. EXAM MEASUREMENTS: RIGHT: Peak Systolic Velocity (PSV) cm/sec ----- Right CCA: 81.7 ----- Right ICA: 106.2 ----- Right ECA: 112.5 ICA/CCA ratio: 1.3 RIGHT: End Diastole cm/sec ----- Right CCA: 11.3 ----- Right ICA: 27.1 ----- Right ECA: 0.0 LEFT: Peak Systolic Velocity (PSV) cm/sec ----- Left CCA: 67.7 ----- Left ICA: 144.2 ----- Left ECA: 107.8 ICA/CCA ratio: 2.1 LEFT: End Diastole cm/sec ----- Left CCA: 10.7 ----- Left ICA: 24.7 ----- Left ECA: 12.2 VERTEBRALS (direction of flow): Right Vertebral: Antegrade Left Vertebral: Antegrade Rhythm: Normal Intimal thickening seen bilaterally. Plaque seen bilateral bulbs and prox bifurcations. ICA appears tortuous bilaterally. Elevated velocity within left ICA. IMPRESSION: There is antegrade flow in the vertebral arteries. There is elevated velocity in the left internal carotid arteries suggestive of 50-70% stenosis. There is estimated 35% stenosis in the right internal carotid artery. Criteria for Assigning % of Stenosis / Diameter reduction (Estimation based on the indirect measurements of the internal carotid artery velocities (ICA PSV). 1. Normal (no stenosis)=ICA PSV < 125 cm/s: ratio < 2.0: ICA EDV<40 cm/s. 2. Less than 50% stenosis=ICA PSV < 125 cm/s: ratio < 2.0: ICA EDV<40 cm/s. 3. 50 to 69% stenosis=ICA PSV of 125 to 230 cm/s: ration 2.0 ? 4.0: ICA EDV 40-100 cm/s. 4. Greater than 70% stenosis to near occlusion= ICA PSV > 230 cm/s: ratio > 4.0: ICA EDV > 100 cm/s. 5. Near occlusion= ICA PSV velocities may be low or undetectable: variable ratio and ICA EDV. 6. Total occlusion=unable to detect flow.
[2021-01-07] MEDS: HEPARIN SODIUM,PORCINE 5,000 UNIT/ML 1 ML VIAL SQ SCH ×2 (01:00→08:41)
[2021-01-07 08:57] VITALS: BP 151/86; PULSE 52; TEMP 97.5
[2021-01-07] MEDS ORDERED: ASPIRIN 325 MG TAB PO SCH (09:00)
[2021-01-07] MEDS ORDERED: amLODIPine 10 MG TAB PO SCH (09:00)
[2021-01-07] MEDS ORDERED: lisinopriL 20 MG TAB PO SCH ×2 (09:00→21:00)
[2021-01-07 09:35] LABS: African American GFR (CKD) 97.2 (60.0-200.0); Anion Gap 10.8 mmol/L (4.00-12.00); BUN/Creat Ratio 23.33 Ratio (12.00-20.00); Calcium 9.2 mg/dL (8.7-10.3); Carbon Dioxide 22.2 mmol/L (21.6-31.8); Non-African American GFR(CKD) 83.8 (60.0-200.0); Potassium 4.2 mmol/L (3.5-5.5)
--- NOTE | 2021-01-07 10:03 | P.CRDCN ---
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 We've been asked to see him in consultation for chest pain. Patient states he has been having intermittent chest pain for some time, unable to say how long. Yesterday morning when he work up he started having 10/10 left sided chest pain. This frightened him, he took his blood pressure and it read SBP 200s. He stated he took an additional dose of his lisinopril and decided to present to the emergency department. He states he has been back and forth to the [facility] over the previous couple weeks secondary to elevated blood pressures. There is no radiation to the arm, back, neck or jaw. He does endorse associated shortness of breath and nausea. He denies any associated dizziness, palpitations or diaphoresis. There is no specific aggravating or alleviating factors. Blood pressure on arrival to the emergency department was 161/85 164/78. EKGs reveals sinus mechanism, right bundle branch block, similar to prior EKG in 2019. No acute ST or T wave abnormalities noted. Chest x-ray reveals chronic parenchymal change, negative for an acute cardiopulmonary process. Laboratory data reviewed, cardiac enzymes negative 2, d-dimer 0.34, sodium 139, potassium 4.2, creatinine 0.9, TSH within normal limits, covid-19 negative. Current cardiac medications include amlodipine 10 mg daily and lisinopril 20 mg twice a day., aspirin 81 mg daily. At the time of my exam: CONSTITUTIONAL: Denies fever. Denies chills. EYES: Denies blurred vision. Denies vision changes. Denies eye pain. EARS, NOSE, MOUTH & THROAT: Denies headache. Denies sore throat. Denies ear pain. CARDIOVASCULAR: +chest pain + shortness of breath. Denies orthopnea. Denies PND. Denies palpitations. RESPIRATORY: Denies cough. GASTROINTESTINAL: Denies abdominal pain. Denies diarrhea. Denies constipation. Denies nausea. Denies vomiting. MUSCULOSKELETAL: Denies myalgias. INTEGUMENTARY: Denies pruitis. Denies rash. NEUROLOGIC: Denies numbness. Denies tingling. Denies weakness. PSYCHIATRIC:+ anxiety. Denies depression. ENDOCRINE: Denies fatigue. Denies weight change. Denies polydipsia. Denies polyurina. GENITOURINARY: Denies burning, hematuria or urgency with micturation. HEMATOLOGIC: Denies history of anemia. Denies bleeding. GENERAL: This is a 75-year-old male in no apparent distress at the time of my examination. HEENT: Head is atraumatic, normocephalic. Pupils are equal, round. Sclerae anicteric. Conjunctivae are clear. Mucous membranes of the mouth are moist. Neck is supple. There is no jugular venous distention. No carotid bruit is heard. LUNGS: Faint expiratory wheeze noted, no rhonchi or rales. No chest wall tenderness is noted on palpation or with deep breathing. HEART: Regular rate and rhythm without murmurs, rubs or gallops. S1 and S2 h eard. ABDOMEN: Soft, nontender. Bowel sounds are heard. No organomegaly noted. EXTREMITIES: No evidence of peripheral edema and no calf tenderness noted. VASCULAR: Radial and dorsalis pedis pulses palpated, no evidence of clubbing. NEUROLOGIC: Patient is awake, alert and oriented x3. ASSESSMENT Chest pain, atypical for angina. An acute coronary event has been ruled out. Hypertension Dyslipidemia PLAN -Resume amlodipine 10mg daily -Start Lisinopril 20mg BID -Continue aspirin 81mg daily. -Obtain 2-D echocardiogram and Doppler study to assess cardiac structure and function. -Complete troponin for a total of 3 drawn. -Perform exercise stress echo test to assess for reversible cardiac ischemia. -If Stress test is normal he is stable to be discharged from a cardiac perspective. Patient can follow up with Dr. Rain in the outpatient office. Thank you kindly for this consultation. Nurse Practitioner note has been reviewed, I agree with a documented findings and plan of care. Patient was seen and examined. d Past Medical History Past Medical History: Hypertension Additional Past Medical History / Comment(s): [place] History of Any Multi-Drug Resistant Organisms: None Reported Past Surgical History: No Surgical Hx Reported Past Anesthesia/Blood Transfusion Reactions: No Reported Reaction Past Psychological History: No Psychological Hx Reported Smoking Status: Former smoker Past Alcohol Use History: Heavy Past Drug Use History: None Reported Medications and Allergies Home Medications Medication Instructions Recorded Confirmed Type amLODIPine [Norvasc] 10 mg PO DAILY 04/01/16 01/06/21 History lisinopriL [Zestril] 20 mg PO DAILY 04/01/16 01/06/21 History Nitroglycerin Sl Tabs [Nitrostat] 0.4 mg SUBLINGUAL Q5M PRN #20 tab 04/18/19 01/06/21 Rx Aspirin EC [Ecotrin Low Dose] 81 mg PO DAILY 01/06/21 01/06/21 History Allergies Allergy/AdvReac Type Severity Reaction Status Date / Time No Known Allergies Allergy Verified 01/06/21 15:52 Physical Exam Vitals: Vital Signs Temp Pulse Pulse Resp BP BP Pulse Ox 01/07/21 01:55 97.7 F 53 L 12 152/84 98 01/06/21 20:00 97.6 F 96 55 L 18 161/84 154/79 97 01/06/21 19:51 97.6 F 55 L 18 154/79 97 01/06/21 17:30 98.1 F 61 20 158/82 98 01/06/21 15:30 98.1 F 58 L 18 164/78 98 01/06/21 12:52 98.1 F 57 L 18 161/85 98 Intake and Output 01/06/21 01/07/21 01/07/21 22:59 06:59 14:59 Other: # Voids 1 2 Weight 86.183 kg Results 01/06/21 13:04 01/07/21 05:45 Cardiac Enzymes 01/06/21 01/06/21 01/07/21 Range/Units 13:04 13:04 01:26 AST 34 (17-59) U/L Troponin I <0.012 <0.012 (0.000-0.034) ng/mL Coagulation 01/06/21 Range/Units 13:04 PT 10.0 (9.0-12.0) sec APTT 25.4 (22.0-30.0) sec CBC 01/06/21 Range/Units 13:04 WBC 4.5 (3.8-10.6) k/uL RBC 5.17 (4.30-5.90) m/uL Hgb 16.0 (13.0-17.5) gm/dL Hct 46.7 (39.0-53.0) % Plt Count 175 (150-450) k/uL Comprehensive Metabolic Panel 01/06/21 Range/Units 13:04 Sodium 137 (137-145) mmol/L Potassium 4.3 (3.5-5.1) mmol/L Chloride 109 H (98-107) mmol/L Carbon Dioxide 21 L (22-30) mmol/L BUN 24 H (9-20) mg/dL Creatinine 0.89 (0.66-1.25) mg/dL Glucose 105 H (74-99) mg/dL Calcium 9.2 (8.4-10.2) mg/dL AST 34 (17-59) U/L ALT 28 (4-49) U/L Alkaline Phosphatase 68 (38-126) U/L Total Protein 7.3 (6.3-8.2) g/dL Albumin 4.3 (3.5-5.0) g/dL Current Medications Generic Name Dose Route Start Last Admin Trade Name Freq PRN Reason Stop Dose Admin Amlodipine Besylate 10 mg 01/07/21 09:00 Amlodipine 10 Mg Tab PO DAILY [facility] Aspirin 325 mg 01/07/21 09:00 Aspirin 325 Mg Tab PO DAILY [facility] Heparin Sodium (Porcine) 5,000 unit 01/07/21 00:00 01/07/21 01:00 Heparin Sodium,Porcine 5,000 Unit/Ml 1 Ml Vial SQ Not Given Q8HR [facility] Lisinopril 20 mg 01/07/21 09:00 Lisinopril 20 Mg Tab PO DAILY [facility] Nitroglycerin 0.4 mg 01/06/21 17:22 Nitroglycerin Sl Tabs 0.4 Mg Tab SUBLINGUAL Q5M PRN Chest Pain Intake and Output 01/06/21 01/07/21 01/07/21 22:59 06:59 14:59 Other: # Voids 1 2 Weight 86.183 kg 01/06/21 13:04 01/06/21 13:04
--- NOTE | 2021-01-07 11:03 | ECHOF ---
Referral Reason:chest pain, shortness of breath MEASUREMENTS -------- HEIGHT: 170.2 cm WEIGHT: 86.2 kg BP: RVIDd: 3.4 cm (< 3.3) IVSd: 1.3 cm (0.6 - 1.1) LVIDd: 3.3 cm (3.9 - 5.3) LVPWd: 1.3 cm (0.6 - 1.1) IVSs: 1.7 cm LVIDs: 2.5 cm LVPWs: 1.6 cm LA Diam: 3.1 cm (2.7 - 3.8) LAESV Index (A-L): 23.12 ml/m Ao Diam: 2.3 cm (2.0 - 3.7) AV Cusp: 1.5 cm (1.5 - 2.6) LA Diam: 3.9 cm (2.7 - 3.8) MV EXCURSION: 18.395 mm (> 18.000) MV EF SLOPE: 78 mm/s (70 - 150) EPSS: 1.6 cm MV E Jose: 0.69 m/s MV DecT: 280 ms MV A Jose: 0.85 m/s MV E/A Ratio: 0.81 FINDINGS -------- Sinus rhythm. This was a technically good study. The left ventricular size is normal. There is mild concentric left ventricular hypertrophy. Overa ll left ventricular systolic function is low-normal with, an EF between 50 - 55 %. The right ventricle is normal in size. The left atrial size is normal. The right atrial size is normal. There is mild aortic valve sclerosis. Mild mitral regurgitation is present. Mild tricuspid regurgitation present. Right ventricular systolic pressure is normal at < 35 mmHg. There is no pulmonic regurgitation present. The aortic root size is normal. There is no pericardial effusion. CONCLUSIONS -------- 1. The left ventricular size is normal. 2. There is mild concentric left ventricular hypertrophy. 3. Overall left ventricular systolic function is low-normal with, an EF between 50 - 55 %. 4. The right ventricle is normal in size. 5. The left atrial size is normal. 6. The right atrial size is normal. 7. There is mild aortic valve sclerosis. 8. Mild mitral regurgitation is present. 9. Mild tricuspid regurgitation present. 10. There is no pulmonic regurgitation present. 11. The aortic root size is normal. 12. There is no pericardial effusion. EAR SPECIALIST: Marylou Manzanares RDCS
[2021-01-07 11:22] LABS: Chol/HDL Ratio 3.97; LDL Cholesterol,Calculated 155.4 mg/dL (0.0-131.0); VLDL Calculation 22.6 mg/dL (5.00-40.00)
--- NOTE | 2021-01-07 12:04 | P.STRESS ---
- Stress Test Note Stress Test Results/Findings: Exam Performed: stress echo exercise Exam Date: 01/07/21 Reason for Exam: CP Height: 5 ft 7 in Weight: 86.18 kg Protocol: ANNA Stage: 3 Duration of Exercise: 7:15 Resting Heart Rate: 63 Resting Blood Pressure: 135/85 Maximum Achieved Heart Rate: 124 Maximum Achieved Blood Pressure: 218/93 85% PMHR: 124 100% PMHR: 146 METS: 7.5 Technologist Comment: Stress Test Results/Findings: This is a 75-year-old gentleman with history of hypertension and hypercholesteremia and smoking history, being evaluated for cardiac status and also chest pains. Stress data: Baseline EKG showed sinus rhythm with evidence of right bundle- branch block pattern. Blood pressure at rest is 135/85, pulse rate of 63. Patient walked on the Anna protocol for 7 minutes and 15 seconds achieving a maximum heart rate of 124 with a blood pressure of 218/93. EKGs taken during and after exercise did not reveal any significant changes from the baseline. Patient is achieved 85% of the present heart rate. Echo data: Baseline echo images show normal wall motion and thickening. Exercise echo images showed augmentation of wall motion and thickening in all the segments. Final impression: #1. Negative stress test #2. Negative stress echo. #3. Patient did not express any chest pain
[2021-01-07 15:35] VITALS: RESP 16
[2021-01-07] MEDS ORDERED: ATORVASTATIN 20 MG TAB PO SCH (21:00)
== END 2021-01-07 15:27 | disposition home or self-care (01) ==
LOC: EC 12:14 → 6NMEDSUR 19:25
PROVIDERS: ADMIT Internal Medicine; ATTEND Internal Medicine
DX: R07.89 Other chest pain (principal); I11.9 Hypertensive heart disease without heart failure; I45.10 Unspecified right bundle-branch block; I08.3 Combined rheumatic disorders of mitral, aortic and tricuspid valves; E78.5 Hyperlipidemia, unspecified; R06.02 Shortness of breath; R11.0 Nausea; R20.0 Anesthesia of skin; R42 Dizziness and giddiness; R55 Syncope and collapse; H91.90 Unspecified hearing loss, unspecified ear; Z20.822 Contact with and (suspected) exposure to COVID-19; Z79.82 Long term (current) use of aspirin; Z79.899 Other long term (current) drug therapy; Z87.891 Personal history of nicotine dependence
CPT/HCPCS: 93005 ×2; 99285; 36415; 93306; 93351; 85379; 80061; 80053; 80048; 84443; 82607; 84484 ×2; 85025; 85610; 85730; 87635; 71046; 93880; G0378 ×2

== ENCOUNTER → 2021-11-23 | Outpatient (CLI) | payer OTHER ==
--- NOTE | 2021-11-23 09:12 | MR ---
EXAMINATION TYPE: MR cspine/lspine wo con DATE OF EXAM: 11/23/2021 COMPARISON: Prior MR cervical spine and lumbar spine 01/31/2018 HISTORY: Prior on synapse, neck middle and low back pain with BUE weakness TECHNIQUE: Multiplanar, multisequence imaging of the cervical and lumbar spine is performed without I V contrast. FINDINGS: Cervical spine MRI: There is multilevel spondylosis similar to prior exam, endplate discogenic marrow signal changes are present especially at C5-6, C6-7, there is associated loss of disc height and sig nal consistent with disc desiccation and degenerative disc disease. No significant spinal stenosis. C ervical cord signal is maintained. 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 C2-3 is stable and essentially unremarkable C3-4: There is some uncovertebral joint hypertrophy and facet arthropathy resulting in some mild fora han encroachment bilaterally left greater than right. Minimal posterior disc bulge causes only slig ht anterior aspect of the thecal sac. C4-5: Left-sided foraminal encroachment is present, there is uncovertebral joint hypertrophy and face t arthropathy. Minimal posterior disc bulge causes slight anterior mass effect on the thecal sac. C5-6: Uncovertebral joint hypertrophy results in left greater than right foraminal encroachment. Post erior extension and disc complex causes anterior mass effect on the thecal sac. C6-7: Foraminal encroachment is present on the left. Posterior endplate disc complex causes slight an terior mass effect on the thecal sac. C7-T1: Within normal limits. IMPRESSION: Degenerative disc disease, multilevel foraminal encroachment similar to prior exam. Lumbar spine MRI: Same numbering scheme utilized as on previous. Sagittal images of the lumbar spine show vertebral body heights and alignment to appear satisfactory. The intervertebral discs demonstrate similar appearance,. The conus medullaris is normal in positio n and signal. The bone marrow signal intensity is stable, there is multilevel spondylosis with endpl ate discogenic marrow signal change, loss of disc height and signal at L5-S1. L5-S1 shows circumferential extension) complex encroaching on the foramina greater on the left than o n the right. Posterior disc bulge contacts the anterior thecal sac and possibly the proximal S1 nerve roots. There is some facet arthropathy change. L4-5: No significant foraminal encroachment on the left, surgical fracture extension and reduced comp sher encroaches minimally on the inferior aspect of the right neural foramen. No evident disc herniati on. There is some facet arthropathy with hypertrophy ligamentum flavum contacting the posterior later al thecal sac. Small cortical cyst present of the posterior aspect of the right kidney is again noted. No evident ad ditional abnormality. IMPRESSION: Mild degenerative disc disease, findings are similar to prior exam.
== END | disposition home or self-care (01) ==
LOC: RADMRIMAIN 06:48
DX: M51.36 Other intervertebral disc degeneration, lumbar region (principal)
CPT/HCPCS: 72141; 72148

== ENCOUNTER 2022-02-26 14:23 | Emergency (ER) | payer OTHER ==
[2022-02-26 14:32] VITALS: BP 150/88; PULSE 70; RESP 18; TEMP 98.1
--- NOTE | 2022-02-26 15:47 | XR ---
EXAMINATION TYPE: XR chest 2V DATE OF EXAM: 02/26/2022 COMPARISON: 01/06/2021 HISTORY: Chest pain TECHNIQUE: Frontal and lateral views of the chest are obtained. FINDINGS: There is no focal air space opacity, pleural effusion, or pneumothorax seen. The cardiac silhouette size is within normal limits. The osseous structures are intact. IMPRESSION: No acute cardiopulmonary process.
--- NOTE | 2022-02-26 16:49 | ED ---
General Adult HPI - General Chief complaint: Chest Pain Stated complaint: Chest Pain Time Seen by Provider: 02/26/22 16:29 Source: patient Mode of arrival: ambulatory Limitations: no limitations - History of Present Illness Initial comments: Dictation was produced using [employer] [place] dictation software. please excuse any grammatical, word or spelling errors. Chief Complaint: 76-year-old male presents to the emergency room for episode of chest pain History of Present Illness: 76-year-old male who has past medical history of hypertension and carotid stenosis. States that he was at the [facility] today for evaluation of chest pain. He states that he had some dull left-sided discomfort that would last for several minutes at a time. Denies any symptoms currently. He feels like his symptoms are from stress. Patient denies any associated diaphoresis or nausea. Patient denies any history of coronary artery disease. The ROS documented in this emergency department record has been reviewed and confirmed by me. Those systems with pertinent positive or negative responses have been documented in the HPI. All other systems are other negative and/or noncontributory. PHYSICAL EXAM: General Impression: Alert and oriented x3, not in acute distress HEENT: Normocephalic atraumatic, extra-ocular movements intact, pupils equal and reactive to light bilaterally, mucous membranes moist. Cardiovascular: Heart regular rate and rhythm Chest: Able to complete full sentences, no retractions, no tachypnea Abdomen: abdomen soft, non-tender, non-distended, no organomegaly Musculoskeletal: Pulses present and equal in all extremities, no peripheral edema Motor: no focal deficits noted Neurological: CN II-XII grossly intact, no focal motor or sensory deficits noted Skin: Intact with no visualized rashes Psych: Normal affect and mood ED course: 76-year-old male presents to the emergency department for chest discomfort. His symptoms are atypical with typical features. EKG does not show any signs of ischemia or infarction. Vital signs are stable. Physical examination is benign. Vital signs upon arrival are within acceptable limits. Laboratory evaluation obtained. CBC, metabolic panel is unremarkable. Troponin is negative. Chest x-ray is nonacute. A chin observed the emergency department for approximately 3 hours and 30 minutes is reevaluated at bedside at 6:00 PM from been stable medical condition. Disposition options were discussed per patient refusing observation admission. He understands the risk of being discharged. Patient given return precautions. He is advised to contact his primary care physician immediately for outpatient management of chest pain. EKG interpretation: Ventricular rate 66, right bundle branch block, sinus rhythm, MT interval 174, QRS 139, QTc 439. No MT prolongation, no QTC prolo ngation, no ST or T-wave changes noted. EKG compared to 01/06/2021 showing no changes. Overall, this EKG is unremarkable - Related Data Home Medications Medication Instructions Recorded Confirmed amLODIPine [Norvasc] 10 mg PO DAILY 04/01/16 01/06/21 Aspirin EC [Ecotrin Low Dose] 81 mg PO DAILY 01/06/21 01/06/21 Previous Rx's Medication Instructions Recorded Nitroglycerin Sl Tabs [Nitrostat] 0.4 mg SUBLINGUAL Q5M PRN #20 tab 04/18/19 Atorvastatin [Lipitor] 20 mg PO HS #30 tab 01/07/21 lisinopriL [Zestril] 20 mg PO BID #60 tab 01/07/21 Allergies Allergy/AdvReac Type Severity Reaction Status Date / Time No Known Allergies Allergy Verified 01/06/21 15:52 Review of Systems ROS Statement: Those systems with pertinent positive or pertinent negative responses have been documented in the HPI. ROS Other: All systems not noted in ROS Statement are negative. 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 ] Respiratory 18 Rate Blood Pressure 150/88 O2 Sat by Pulse 98 Oximetry Medical Decision Making - Lab Data Result diagrams: 02/26/22 17:12 02/26/22 17:12 Lab Results 02/26/22 02/26/22 02/26/22 Range/Units 17:12 17:12 17:12 WBC 8.0 (3.8-10.6) k/uL RBC 5.38 (4.30-5.90) m/uL Hgb 17.2 (13.0-17.5) gm/dL Hct 50.5 (39.0-53.0) % MCV 93.9 (80.0-100.0) fL MCH 32.0 (25.0-35.0) pg MCHC 34.0 (31.0-37.0) g/dL RDW 13.9 (11.5-15.5) % Plt Count 199 (150-450) k/uL MPV 7.1 Neutrophils % 76 % Lymphocytes % 14 % Monocytes % 6 % Eosinophils % 1 % Basophils % 1 % Neutrophils # 6.1 (1.3-7.7) k/uL Lymphocytes # 1.1 (1.0-4.8) k/uL Monocytes # 0.5 (0-1.0) k/uL Eosinophils # 0.1 (0-0.7) k/uL Basophils # 0.1 (0-0.2) k/uL Sodium 135 L (137-145) mmol/L Potassium 4.5 (3.5-5.1) mmol/L Chloride 105 (98-107) mmol/L Carbon Dioxide 21 L (22-30) mmol/L Anion Gap 9 mmol/L BUN 17 (9-20) mg/dL Creatinine 0.98 (0.66-1.25) mg/dL Est GFR (CKD-EPI)AfAm 88 (>60 ml/min/1.73 sqM) Est GFR (CKD-EPI)NonAf 76 (>60 ml/min/1.73 sqM) Glucose 86 (74-99) mg/dL Calcium 9.2 (8.4-10.2) mg/dL Troponin I <0.012 (0.000-0.034) ng/mL Disposition Clinical Impression: Chest pain Disposition: HOME SELF-CARE Condition: Fair Instructions (If sedation given, give patient instructions): Chest Pain (ED) Is patient prescribed a controlled substance at d/c from ED?: No Referrals: [facility] [Primary Care Provider] - 1-2 days
[2022-02-26 17:24] LABS: Basophils # (A) 0.1 k/uL (0-0.2); Basophils % (A) 1 %; Eosinophils # (A) 0.1 k/uL (0-0.7); Eosinophils % (A) 1 %; HCT 50.5 % (39.0-53.0); HGB 17.2 gm/dL (13.0-17.5); Lymphocytes # (A) 1.1 k/uL (1.0-4.8); Lymphocytes % (A) 14 %; MCV 93.9 fL (80.0-100.0); Mean Platelet Volume 7.1; Monocytes # (A) 0.5 k/uL (0-1.0); Monocytes % (A) 6 %; Neutrophils # (A) 6.1 k/uL (1.3-7.7); Neutrophils % (A) 76 %; Platelet Count 199 k/uL (150-450); RBC 5.38 m/uL (4.30-5.90); RDW 13.9 % (11.5-15.5)
[2022-02-26 17:39] LABS: Calcium 9.2 mg/dL (8.4-10.2); Potassium 4.5 mmol/L (3.5-5.1)
[2022-02-26] MEDS ORDERED: ASPIRIN 81 MG PO STA (18:01)
== END 2022-02-26 18:22 | disposition home or self-care (01) ==
LOC: EC 14:23
DX: R07.89 Other chest pain (principal); I10 Essential (primary) hypertension; F17.200 Nicotine dependence, unspecified, uncomplicated
CPT/HCPCS: 36415; 71046; 80048; 84484; 85025